=== PATIENT | female | born 1945 | race Caucasian/White ===

== ENCOUNTER 2020-07-05 11:12 | Emergency (ER) | payer MEDICARE | END 2020-07-05 12:42 | disposition home or self-care (01) | LOC: CSHERS 11:12 | DX: M79.604 Pain in right leg (principal); R60.0 Localized edema; E11.9 Type 2 diabetes mellitus without complications; E78.5 Hyperlipidemia, unspecified; I48.91 Unspecified atrial fibrillation ==

== ENCOUNTER 2020-07-07 12:41 | Emergency (ER) | payer MEDICARE | END 2020-07-07 15:19 | disposition home or self-care (01) | LOC: CSHERS 12:41 | DX: R60.9 Edema, unspecified (principal); I11.0 Hypertensive heart disease with heart failure; I50.9 Heart failure, unspecified; E11.9 Type 2 diabetes mellitus without complications; I48.91 Unspecified atrial fibrillation; E78.5 Hyperlipidemia, unspecified | CPT/HCPCS: 93970 ==